=== PATIENT | female | born 1945 | race Caucasian/White ===

== ENCOUNTER → 2020-09-15 | Outpatient (CLI) | payer MEDICARE ==
[~2020-09-15] MED LIST: ALEVE; ATORVASTATIN CA20 MG PO; CHOLESTEROL MED PO; HYDROCODON-ACE1 EA12 PO; LEVOTHYROXINE50 MCG PO; Z.0.SYNTHROID50 MCG PO
== END ==
LOC: RAD 16:04
PROVIDERS: ATTEND Internal Medicine
DX: S63.501A Unspecified sprain of right wrist, initial encounter (principal)

== ENCOUNTER 2021-08-26 10:01 | Emergency (ER) | payer MEDICARE ==
[~2021-08-26] VITALS: Ht 167.6 cm; Wt 70.3 kg
[2021-08-26] MEDS ORDERED: CASIRIVIMAB/IMDEVIMAB 10 ML in SODIUM CHLORIDE 0.9% 100 ML IV ONE (10:45)
== END 2021-08-26 12:15 | disposition home or self-care (01) ==
LOC: ER 10:10
DX: U07.1 COVID-19 (principal); M19.09 Primary osteoarthritis, other specified site
CPT/HCPCS: 99283

== ENCOUNTER → 2022-02-23 | Outpatient (CLI) | payer MEDICARE | LOC: MAMMO 08:47 | PROVIDERS: ATTEND Internal Medicine | DX: Z12.31 Encounter for screening mammogram for malignant neoplasm of breast (principal); M85.88 Other specified disorders of bone density and structure, other site | CPT/HCPCS: 77067; 77080 ==

== ENCOUNTER 2022-05-24 10:17 | Emergency (ER) | payer MEDICARE ==
[~2022-05-24] VITALS: Ht 167.6 cm; Wt 70.3 kg
[2022-05-24] MEDS ORDERED: KETOROLAC TROMETHAMINE 60 MG/2 ML VIAL IM ONE (10:45)
[2022-05-24] MEDS ORDERED: ULTRAM 50MG50 MG PO (11:44)
== END 2022-05-24 11:52 | disposition home or self-care (01) ==
LOC: ER 10:47
DX: M54.6 Pain in thoracic spine (principal); M85.88 Other specified disorders of bone density and structure, other site
CPT/HCPCS: 72070; 99283; J1885